=== PATIENT | female | born 1985 | race American Indian/Alaskan Native ===

== ENCOUNTER 2022-02-19 09:29 | Emergency (ER) | payer MEDICAID ==
[2022-02-19 09:45] VITALS: BP 121/94
[2022-02-19 12:13] LABS: Hematocrit 45.5 % (30.3-42.9); Hemoglobin 15.1 gm/dl (10.1-14.3); Mean Corpuscular HGB Conc 33 % (30-34); Mean Corpuscular Volume 85 fl (79-97); Platelet Count 277 K/mm3 (140-440); Red Blood Count 5.37 M/mm3 (3.65-5.03)
[2022-02-19 12:31] LABS: Blood Urea Nitrogen 10 mg/dL (7-17); Calcium 9.5 mg/dL (8.4-10.2); Hemolysis Index 22
[2022-02-19 12:40] LABS: BUN/Creatinine Ratio 17
== END 2022-02-19 12:00 | disposition left against medical advice (07) ==
LOC: ED 09:29
DX: M79.673 Pain in unspecified foot (principal); Z53.21 Procedure and treatment not carried out due to patient leaving prior to being seen by health care provider
CPT/HCPCS: 36415; 80048; 82805; 82962; 85027